=== PATIENT | female | born 1945 | race Caucasian/White ===

== ENCOUNTER → 2025-01-16 | Outpatient (REF) | payer BC | LOC: M LAB REF 17:31 | PROVIDERS: ATTEND Physician Assistant | DX: R30.0 Dysuria (principal) ==

== ENCOUNTER → 2025-03-20 | Outpatient (REF) | payer BC | LOC: M LAB REF 17:15 | PROVIDERS: ATTEND Physician Assistant | DX: R30.0 Dysuria (principal) ==